=== PATIENT | male | born 1955 | race Caucasian/White ===

== ENCOUNTER 2021-10-24 08:12 | Emergency (ER) | payer MEDICARE, OTHER, SELFPAY ==
[2021-10-24 08:23] VITALS: BP 154/81; PULSE 80; RESP 16; TEMP 36.7; O2SAT 100; BMI 19.6
--- NOTE | 2021-10-24 08:36 | DI.CT.S_ITS ---
PROCEDURE: CT ABDOMEN PELVIS W CON INDICATIONS: Diffuse abdominal pain and unexplained weight loss and blood TECHNIQUE: After the administration of intravenous contrast, axial sections acquired from the lung bases to the pubic symphysis. Coronal and sagittal reformats were performed. For radiation dose reduction, the following was used: automated exposure control, adjustment of mA and/or kV according to patient size. COMPARISON: [facility], , ABDOMEN COMPLETE, 10/24/2021, 10:40. FINDINGS: Image quality: Excellent. Lung bases: Unremarkable. Heart: No significant findings. ABDOMEN: Liver: Unremarkable. Gallbladder: Unremarkable. Biliary ducts: Unremarkable. Pancreas: Unremarkable. Spleen: Unremarkable. Adrenal Glands: Unremarkable. Kidneys and Ureters: Unremarkable. Stomach and Bowel: There is bowel wall thickening and inflammatory fat stranding surrounding a prominent diverticulum in the sigmoid colon. No signs of small bowel obstruction. Peritoneum: No pneumoperitoneum. No focal fluid collection or abscess. Trace pericolonic and perirectal fluid is most likely reactive. Ventral Wall: No hernias. Abdominal Nodes: No retroperitoneal or mesenteric adenopathy by size criteria. Vessels: Aorta and inferior vena cava are normal in size. PELVIS: Pelvic Organs: Unremarkable. Bladder: Unremarkable. Pelvic Nodes: No enlarged lymph nodes. Miscellaneous: No hernias are seen. Bones: There is bilateral spondylolysis of L5 with grade 1 anterolisthesis of L5 on S1 measuring approximately 6 mm. There is also bilateral spondylolysis of L4 with 4 mm grade 1 anterolisthesis of L4 on L5. IMPRESSION: Acute uncomplicated sigmoid diverticulitis. Dictated by: Sandor Collins M.D. on 10/24/2021 at 10:42 Approved by: Sandor Collins M.D. on 10/24/2021 at 10:46
[2021-10-24 08:45] LABS: Add Manual Diff / Slide Review NO; Basophils Absolute Auto 0 /uL (0-100); Basophils Percent Auto 0.3 % (0-2); Eosinophils Absolute Auto 0 /uL (0-450); Eosinophils Percent Auto 0.3 % (2-4); Hematocrit 45.9 % (41-53); Hemoglobin 15.5 g/dL (13.5-17.5); Lymphocytes Absolute Auto 1200 /uL (1100-4500); Lymphocytes Percent Auto 10.5 % (25-40); Mean Corpuscular HGB Conc 33.7 % (30-36); Mean Corpuscular Hemoglobin 30.4 PG (26-34); Mean Corpuscular Volume 90.2 fL (80-100); Monocytes Absolute Auto 1300 /uL (0-900); Monocytes Percent Auto 10.9 % (3-14); Neutrophils Absolute Auto 9200 /uL (1500-7000); Platelet Count 101 X10^3/uL (150-400); Red Blood Cell Count 5.08 X10^6/uL (4.5-5.9); Red Cell Distribution Width 13.3 % (11.6-14.8); White Blood Cell Count 11.8 X10^3/uL (4.5-11.0)
--- NOTE | 2021-10-24 08:46 | ED_ITS ---
HPI - Abdominal Pain General Chief Complaint: Abdominal Pain Stated Complaint: ABD. PAIN/FEVER Time Seen by Provider: 10/24/21 08:15 Source: patient Mode of arrival: Ambulatory History of Present Illness HPI narrative: This 66-year-old gentleman comes to the ER today from his home on [address] [facility] because of a 24 hour episode of moderate mid abdominal pain. Had 8 or 9 of these episodes over the past few years and they have always been self- limited within a couple of days. He has told his primary care doctor about them but has never been in the midst of an episode when he was seeing his primary care doctor. Additionally, he has had an unexplained weight loss of about 20 lb over the past couple of years. This current episode is associated with fever last night. Perhaps some positional change with the pain. No radiation to the back. No dysuria or urgency or frequency. He says that he feels somewhat constipated now but over the past 24 hours has had some loose stools that were nonbloody. Has felt vaguely nauseated but has not had any vomiting. He is had no previous abdominal surgeries. Does drink some alcohol a couple of days a week. He denies any other drug use and is a lifelong nonsmoker. He is never had a screening colonoscopy. Related Data Home Medications Medication Instructions Recorded Confirmed VITAMIN B COMPLEX 1 cap PO 2 X WEEK ##0 10/03/12 cholecalciferol (vitamin D3) 10 1 - 2 drp PO Q DAY ##0 03/10/16 mcg/mL (400 unit/mL) oral drops aspirin 325 mg tablet 162 mg PO QDAY ##0 03/15/16 Previous Rx's Medication Instructions Recorded ciprofloxacin HCl 500 mg tablet 500 mg PO BID #20 tabs 10/24/21 (Cipro) metronidazole 500 mg tablet 250 mg PO TID #30 tabs 10/24/21 Allergies Allergy/AdvReac Type Severity Reaction Status Date / Time hornet venom [HORNET VENOM] Allergy Severe ARM Verified 10/24/21 08:23 SWELLING-EPI ORDERED Review of Systems Review of Systems Narrative: Complete review of systems is negative other than as noted above. Patient History Surgical History (Updated 06/19/17 @ 05:36 by Conversion Provider) History of carpal tunnel repair History of tonsillectomy Family History (Updated 07/28/15 @ 00:00 by Conversion Provider) Brother Age: 71 Parkinson's disease Father Heart disease Mother Age: 95 Dementia Neuropathy Social History Smoking Status: Never smoker Smoking Status: Never smoker alcohol intake frequency: a few times a week Substance Use Type: does not use Exam Narrative Exam Narrative: GENERAL: Alert, cooperative and in no distress. HEAD: Atraumatic. Normocephalic. EYES: Sclera are clear without icterus. Extraocular movements are full. ENT: No rhinorrhea. Oropharynx is moist. Mouth exam is benign. NECK: Supple. Full range of motion. CARDIOVASCULAR: Normal rate and rhythm without murmur gallop or rub. RESPIRATORY: Clear to auscultation. Breath sounds equal bilaterally. No wheezes, rales, or rhonchi. GASTROINTESTINAL: Abdomen soft, non-tender, nondistended. No palpable mass. RECTAL: Normal anal sphincter tone. Normal-sized prostate without nodules. No rectal mass palpable. Scant brown stool recovered on the exam glove. The stool is guaiac positive. EXTREMITIES: No edema, full range of motion. No obvious trauma. BACK: Normal inspection, no CVA tenderness. NEURO: Nonfocal examination, normal speech, normal gait. SKIN: No rash or erythema of visible areas PSYCH: Normally oriented. Normal range of affect. Appropriate behavior Initial Vital Signs Initial Vital Signs: Vital Signs Temperature 98.1 F 10/24/21 08:23 Pulse Rate 80 10/24/21 08:23 Respiratory Rate 16 10/24/21 08:23 Blood Pressure 154/81 H 10/24/21 08:23 Pulse Oximetry 100 10/24/21 08:23 Oxygen Delivery Method 10/24/21 08:23 Course Course Course Narrative: Bilirubin is mildly elevated. CT scanner. Will proceed with abdominal ultrasonography. Orders Ordered: ED Orders 10/24/21 08:35 Complete Blood Count AUTO DIFF Stat Comprehensive Metabolic Panel Stat Lipase Stat Urinalysis and Microscopic Stat 10/24/21 08:36 CT abdomen pelvis w con Stat 10/24/21 10:05 US abdomen complete Stat Discontinued Medications Ciprofloxacin (Ciprofloxacin 250 Mg Tablet) 500 mg PO NOW ONE Stop: 10/24/21 12:03 Metronidazole (Metronidazole 500 Mg Tablet) 500 mg PO NOW ONE Stop: 10/24/21 12:03 Vital Signs Vital signs: Vital Signs - 8 hr 10/24/21 08:23 10/24/21 11:25 Temperature 98.1 F Pulse Rate 80 76 Respiratory Rate 16 18 Blood Pressure 154/81 H 149/69 H Pulse Oximetry 100 100 Oxygen Delivery Method Room Air Room Air MDM - Abdominal Pain Lab Data Result diagrams: 10/24/21 08:35 10/24/21 08:35 Labs: Lab Results 10/24/21 10/24/21 10/24/21 Range/Units 08:35 08:35 08:35 WBC 11.8 H (4.5-11.0) X10^3/uL RBC 5.08 (4.5-5.9) X10^6/uL Hgb 15.5 (13.5-17.5) g/dL Hct 45.9 (41-53) % MCV 90.2 (80-100) fL MCH 30.4 (26-34) PG MCHC 33.7 (30-36) % RDW 13.3 (11.6-14.8) % Plt Count 101 L (150-400) X10^3/uL Neut % (Auto) 78.0 H (50-75) % Lymph % (Auto) 10.5 L (25-40) % Castro % (Auto) 10.9 (3-14) % Eos % (Auto) 0.3 L (2-4) % Baso % (Auto) 0.3 (0-2) % Neut # (Auto) 9200 H (2917-7832) /uL Lymph # (Auto) 1200 (9141-1891) /uL Castro # (Auto) 1300 H (0-900) /uL Eos # (Auto) 0 (0-450) /uL Baso # (Auto) 0 (0-100) /uL Sodium 135 L (137-145) mmol/L Potassium 4.0 (3.4-5.1) mmol/L Chloride 102 (98-107) mmol/L Carbon Dioxide 28 (22-32) mmol/L BUN 13 (9-20) mg/dL Creatinine 0.93 (0.66-1.25) mg/dL Estimated GFR > 60 (>60) mL/min BUN/Creatinine Ratio 14.0 (6-22) Glucose 104 (80-110) mg/dL Calcium 8.6 (8.4-10.2) mg/dL Total Bilirubin 2.2 H (0.2-1.3) mg/dL AST 31 (17-59) IU/L ALT 19 (<50) IU/L Alkaline Phosphatase 72 (38-126) U/L Total Protein 7.3 (6.3-8.2) g/dL Albumin 4.2 (3.5-5.0) g/dL Globulin 3.1 (1.7-4.1) g/dL Albumin/Globulin Ratio 1.4 (1.0-2.8) Lipase 81 (23-300) U/L Urine Color Yellow Urine Appearance Clear Urine pH 5.0 (4.5-8.0) Ur Specific [place] 1.025 (1.000-1.035) Urine Protein Trace H (Negative) Urine Glucose (UA) Trace H (Negative) g/dL Urine Ketones 1+ H (NEGATIVE) Urine Occult Blood Trace-intact (Negative) Urine Nitrate Negative (Negative) Urine Bilirubin Negative (NEGATIVE) Urine Urobilinogen 0.2 (0.2) E.U./dL Ur Leukocyte Esterase Trace H (NEGATIVE) Urine RBC None seen (0-5/HPF) Urine WBC 0-1/hpf (0-5/HPF) Ur Squamous Epith Cells None seen (0-5/HPF) Urine Bacteria None seen (None) Urine Mucus 2+ H (Negative) Ur Culture Indicated? Cult not indicated Imaging Data US - abdomen: Radiologist's Impression: [place] [address] Ultrasound Report Signed Patient: Efren Liriano MR#: [id number] : 1955 Acct:[id number] Age/Sex: 66 / M Date of Service: 10/24/21 Loc: ED Accession Number: [id number] ?? Procedure: US abdomen complete Ordering Provider: Austin No MD PROCEDURE:? US ABDOMEN COMPLETE ? INDICATIONS:? Diffuse abdominal pain, elevated bilirubin ? TECHNIQUE:? Real-time scanning was performed of the abdominal and retroperitoneal organs, with image documentation.? ? COMPARISON:? [facility], US, ABDOMEN COMPLETE, 10/04/2010, 14:49.? [facility], CT, CT ABDOMEN PELVIS W CON, 10/24/2021, 11:11. ? FINDINGS:? ? Liver:? Liver is normal in size and homogeneous in echotexture.? The main portal vein and hepatic veins are patent. ? Gallbladder:? The gallbladder appears normal without gallstones or gallbladder wall thickening.? There is trace debris or sludge in the gallbladder.? There is no pericholecystic fluid.? Sonographic Gamino sign is negative. ? Biliary ducts:? Intrahepatic bile ducts are non-dilated.? Extrahepatic bile duct caliber measures 6 mm.? Normal is 6-7 mm or less in diameter, or 10 mm or less post-cholecystectomy.? ? Pancreas:? Visualized portions of the pancreas are sonographically normal.? ? Spleen:? Spleen is normal in size and homogeneous in echotexture.? ? Kidneys:? Kidneys are normal in size and echotexture.? Right kidney measures 10.2 cm long; left kidney measures 12 cm long.? No hydronephrosis or nephrolithiasis.? No solid masses.? Left kidney is not well evaluated due to overlying bowel gas and rib shadows. ? Aorta:? Visualized aorta is normal in caliber at less than 3 cm.? ? Iliacs:? Proximal common iliac arteries are normal in caliber at less than 2.5 cm.? ? IVC:? Intrahepatic inferior vena cava is patent.? ? Miscellaneous:? No free abdominal fluid.? ? IMPRESSION:? No acute sonographic abnormality in the abdomen. ? ? ? Dictated by: Sandor Collins M.D. on 10/24/2021 at 10:26 ? ? Approved by: Sandor Collins M.D. on 10/24/2021 at 10:34 ? CT scan - abdomen/pelvis: Radiologist's Impression: [address] [address] [address] Scan Report Signed Patient: Efren Liriano MR#: [id number] : 1955 Acct:[id number] Age/Sex: 66 / M Date of Service: 10/24/21 Loc: ED Accession Number: [id number] ?? Procedure: CT abdomen pelvis w con Ordering Provider: Austin No MD PROCEDURE:? CT ABDOMEN PELVIS W CON ? INDICATIONS:? Diffuse abdominal pain and unexplained weight loss and blood ? TECHNIQUE:? After the administration of intravenous contrast, axial sections acquired from the lung bases to the pubic symphysis.? Coronal and sagittal reformats were performed.? For radiation dose reduction, the following was used:? automated exposure control, adjustment of mA and/or kV according to patient size.? ? COMPARISON:? [facility], , ABDOMEN COMPLETE, 10/24/2021, 10:40. ? FINDINGS:? Image quality:? Excellent.? ? Lung bases:? Unremarkable. Heart:? No significant findings. ? ABDOMEN: Liver:? Unremarkable.? ? Gallbladder:? Unremarkable. Biliary ducts:? Unremarkable.? ? Pancreas:? Unremarkable.? ? Spleen:? Unremarkable.? ? Adrenal Glands:? Unremarkable.? ? Kidneys and Ureters:? Unremarkable.? ? ? Stomach and Bowel:? There is bowel wall thickening and inflammatory fat stranding surrounding a prominent diverticulum in the sigmoid colon.? No signs of small bowel obstruction. Peritoneum:? No pneumoperitoneum.? No focal fluid collection or abscess.? Trace pericolonic and perirectal fluid is most likely reactive. ? Ventral Wall: ? No hernias.? Abdominal Nodes:? No retroperitoneal or mesenteric adenopathy by size criteria.? Vessels:? Aorta and inferior vena cava are normal in size.? ? PELVIS: Pelvic Organs:? Unremarkable.? ? Bladder:? Unremarkable.? ? Pelvic Nodes: No enlarged lymph nodes.? Miscellaneous: No hernias are seen. ? ? ? Bones:? There is bilateral spondylolysis of L5 with grade 1 anterolisthesis of L5 on S1 measuring approximately 6 mm.? There is also bilateral spondylolysis of L4 with 4 mm grade 1 anterolisthesis of L4 on L5.? ? IMPRESSION:? Acute uncomplicated sigmoid diverticulitis. ? ? ? Dictated by: Sandor Collins M.D. on 10/24/2021 at 10:42 ? ? Approved by: Sandor Collins M.D. on 10/24/2021 at 10:46 ? [facility] Narrative Medical decision making narrative: This gentleman has multiple episodes of her years of unexplained midabdominal pain. Remarkably also unexplained weight loss over the past couple of years. No screening colonoscopy. Guaiac-positive stool today. Detailed workup seems indicated. Diverticulitis is identified. Will treat empirically for this. I recommend saeid se outpatient follow-up for guaiac-positive stool and abnormal weight loss. Discharge Plan Departure Patient Disposition: Home Clinical Impression: Diverticulitis Instructions: DI for Diverticulitis Activity Restrictions/Additional Instructions: You have diverticulitis. You also have occult blood in your stool. This may be from the diverticulitis but it is not possible to say for sure that there is not a hidden cancer in the colon. This would require colonoscopy. Regarding her abnormal weight loss. I do not think any further workup is required in the emergency department right now but I do recommend you follow-up with your primary care doctor and discuss this and any potential further workup that might be indicated. Return to the ER for worsening symptoms such as uncontrolled abdominal pain, uncontrolled vomiting or other severe symptoms. Follow-up with your doctor in a few days if things are not improving. Prescriptions: New ciprofloxacin HCl [Cipro] 500 mg tablet 500 mg PO BID Qty: 20 0RF metronidazole 500 mg tablet 250 mg PO TID Qty: 30 0RF No Action VITAMIN B COMPLEX 1 cap PO 2 X WEEK Qty: 0 cholecalciferol (vitamin D3) 400 UNIT/1 ML drops 1 - 2 drp PO Q DAY Qty: 0 aspirin 325 MG tablet 162 mg PO QDAY Qty: 0
[2021-10-24 08:54] LABS: Alanine Aminotransferase 19 IU/L (<50); Albumin 4.2 g/dL (3.5-5.0); Albumin Globulin Ratio 1.4 (1.0-2.8); Alkaline Phosphatase 72 U/L (38-126); Appearance Urine UA CLEAR; Aspartate Aminotransferase 31 IU/L (17-59); Bilirubin Total 2.2 mg/dL (0.2-1.3); Bilirubin Urine UA NEGATIVE (NEGATIVE); Blood Urea Nitrogen 13 mg/dL (9-20); Calcium 8.6 mg/dL (8.4-10.2); Carbon Dioxide 28 mmol/L (22-32); Chloride 102 mmol/L (98-107); Color Urine UA YELLOW; Estimated Glomerular Filt Rate > 60 mL/min (>60); Globulin 3.1 g/dL (1.7-4.1); Glucose 104 mg/dL (80-110); Glucose Urine UA TRACE g/dL (Negative); HEMOLYSIS < 15 (0-50); Ketones Urine UA 1+ (NEGATIVE); Leukocyte Esterase Urine UA TRACE (NEGATIVE); Lipase 81 U/L (23-300); Nitrite Urine UA NEGATIVE (Negative); Occult Blood Urine UA TRACE-INTACT (Negative); Protein Urine UA TRACE (Negative); Sodium 135 mmol/L (137-145); Specific Gravity Urine UA 1.025 (1.000-1.035); Total Protein 7.3 g/dL (6.3-8.2); Urobilinogen Urine UA 0.2 E.U./dL (0.2)
[2021-10-24 09:01] LABS: Bacteria Urine None Seen; Culture Indicated Urine Cult Not Indicated; Mucus Urine 2+ (Negative); RBC Urine None Seen (0-5/HPF); Squamous Epithelial Cell Urine None Seen (0-5/HPF); WBC Urine 0-1/HPF (0-5/HPF)
--- NOTE | 2021-10-24 10:05 | DI.US.S_ITS ---
PROCEDURE: US ABDOMEN COMPLETE INDICATIONS: Diffuse abdominal pain, elevated bilirubin TECHNIQUE: Real-time scanning was performed of the abdominal and retroperitoneal organs, with image documentation. COMPARISON: [facility], US, ABDOMEN COMPLETE, 10/04/2010, 14:49. [facility], CT, CT ABDOMEN PELVIS W CON, 10/24/2021, 11:11. FINDINGS: Liver: Liver is normal in size and homogeneous in echotexture. The main portal vein and hepatic veins are patent. Gallbladder: The gallbladder appears normal without gallstones or gallbladder wall thickening. There is trace debris or sludge in the gallbladder. There is no pericholecystic fluid. Sonographic Gamino sign is negative. Biliary ducts: Intrahepatic bile ducts are non-dilated. Extrahepatic bile duct caliber measures 6 mm. Normal is 6-7 mm or less in diameter, or 10 mm or less post-cholecystectomy. Pancreas: Visualized portions of the pancreas are sonographically normal. Spleen: Spleen is normal in size and homogeneous in echotexture. Kidneys: Kidneys are normal in size and echotexture. Right kidney measures 10.2 cm long; left kidney measures 12 cm long. No hydronephrosis or nephrolithiasis. No solid masses. Left kidney is not well evaluated due to overlying bowel gas and rib shadows. Aorta: Visualized aorta is normal in caliber at less than 3 cm. Iliacs: Proximal common iliac arteries are normal in caliber at less than 2.5 cm. IVC: Intrahepatic inferior vena cava is patent. Miscellaneous: No free abdominal fluid. IMPRESSION: No acute sonographic abnormality in the abdomen. Dictated by: Sandor Collins M.D. on 10/24/2021 at 10:26 Approved by: Sandor Collins M.D. on 10/24/2021 at 10:34
[2021-10-24 11:25] VITALS: BP 149/69; PULSE 76; RESP 18; O2SAT 100
[2021-10-24] MEDS: CIPROFLOXACIN 250 MG TABLET 500 MG PO (12:11)
[2021-10-24] MEDS: metroNIDAZOLE 500 MG TABLET PO (12:11)
== END 2021-10-24 12:18 | disposition home or self-care (01) ==
PROVIDERS: Emergency Provider Family Medicine Addiction Medicine
DX: K57.92 Diverticulitis of intestine, part unspecified, without perforation or abscess without bleeding (principal); R63.4 Abnormal weight loss; R50.9 Fever, unspecified
CPT/HCPCS: 36415; 74177; 76700; 80053; 81001; 83690; 85025; 99283; 99284; Q9967

== ENCOUNTER → 2022-06-27 07:34 | Outpatient (CLI) | payer MEDICARE, OTHER, SELFPAY ==
--- NOTE | 2022-06-27 | DI.US.S_ITS ---
PROCEDURE: US ABD AORTA ANEURYSM SCREEN INDICATIONS: ASCENDING AORTIC DILATION TECHNIQUE: Real time scanning was performed of the aorta and iliac arteries, with image documentation. COMPARISON: CT, CT ABDOMEN PELVIS W CON, 10/24/2021, 11:11. US, US ABDOMEN COMPLETE, 10/24/2021, 10:40. FINDINGS: Aorta: Proximal aortic diameter measures 2.2 cm. Mid-aorta measures 1.6 cm. Distal aortic diameter is 1 point soft cm. Iliac arteries: Right common iliac artery measures 1.2 cm. Left common iliac artery measures 1.4 cm. IMPRESSION: No aneurysmal dilation. Dictated by: Janessa Pedraza M.D. on 06/27/2022 at 10:48 Approved by: Janessa Pedraza M.D. on 06/27/2022 at 11:54
== END ==
PROVIDERS: PCP Family Medicine; Referring Provider Nurse Practitioner Family; Visit Provider Nurse Practitioner Family
DX: R07.89 Other chest pain (principal)
CPT/HCPCS: 76706

== ENCOUNTER → 2022-06-29 07:51 | Outpatient (CLI) | payer MEDICARE, OTHER, SELFPAY ==
--- NOTE | 2022-06-29 | DI.ECHO.S_ITS ---
[facility] +---------+ : : [address] [place] : : : : [id number] : : : : Phone: [phone]+ Echocardiogram Report + + :Name: DENICE LIRA Study Date: 06/29/2022 Height: 71 in : :[facility] ReadingLocation: Weight: 142 lb : : Gender: Male BSA: 1.8 m2 : :: 1955 Age: 67 yrs BP: 120/68 mmHg: :Reason For Study: DYSPNEA, FAMILY HISTORY CORONARY ARTERY : :DISEASE HR: 65 : :Ordering Physician: JUJU GAO : :E Performed By: ELISHA MCCOLLUM : :Referring: JUJU GAO E : + + Interpretation Summary 1) Normal left ventricular thickness, size, wall motion, and systolic function (EF 55-60%). 2) Mildly enlarged right ventricle with normal function. 3) No significant valvular abnormalities. 4) No prior Echo available for comparison. Procedure: A two-dimensional transthoracic echocardiogram with color flow and Doppler was performed. The study quality was technically adequate. There is no prior echocardiogram noted for this patient. The patient was in normal sinus rhythm during the exam. Left Ventricle: The left ventricle is normal in size and wall thickness. Left ventricular systolic function is normal. The ejection fraction is estimated to be 55-60%. There are no focal wall motion abnormalities. Diastolic parameters suggest a relaxation abnormality of the left ventricle, consistent with probable normal filling pressures. Right Ventricle: The right ventricle is mildly dilated. The right ventricular systolic function is normal. Atria: The left atrial size is normal. The right atrium is moderately dilated. There is no Doppler evidence for an interatrial shunt. Mitral Valve: The mitral valve is normal in structure and function. There is mild mitral regurgitation. Aortic Valve: The aortic valve is trileaflet. The aortic valve opens well. There is no aortic valve stenosis. There is trace aortic regurgitation. Tricuspid Valve: The tricuspid valve is normal in structure and function. There is mild tricuspid regurgitation. The right ventricular systolic pressure is estimated to be at least 23 mmHg based on an estimated right atrial pressure of 3 mm Hg. Pulmonic Valve: The pulmonic valve leaflets are thin and pliable; valve motion is normal. There is no pulmonic valvular regurgitation. Great Vessels: The aortic root is normal size. The ascending aorta is normal in size. The IVC is of normal diameter and collapses greater than 50% with a sniff. This suggests a low right atrial pressure of 3 mm Hg. Pericardium/ Pleura There is no pericardial effusion. There is no pleural effusion. MMode/2D Measurements & Calculations LVIDd: 4.0 cm LVOT diam: 2.0 cm LVIDs: 3.0 cm Ao root diam: 3.1 cm FS: 24.4 % asc Aorta Diam: 2.9 cm IVSd: 0.93 cm Ao Arch Diam (Prox Trans): 2.0 cm LVPWd: 0.79 cm LV montgomery. diameter/BSA (cm/m^2): 2.2 LV sys. diameter/BSA (cm/m^2): 1.6 LA A2 area: 17.5 cm2 RA long axis: 5.0 cm LA A4 area: 8.3 cm2 RA area: 20.4 cm2 LA length (vol): 3.6 cm RA vol: 70.3 ml LA vol: 34.4 ml RA : 38.6 ml/m2 LA vol index: 18.8 ml/m2 IVC diam: 1.4 cm TAPSE: 1.8 cm Doppler Measurements & Calculations Ao V2 max: 108.8 cm/sec LVOT Max Polo: 78.8 cm/sec Ao V2 mean: 70.7 cm/sec LV V1 max P.5 mmHg Ao max P.7 mmHg LV V1 VTI: 16.3 cm Ao mean P.2 mmHg MONIKA(I,D): 2.6 cm2 Ao V2 VTI: 19.9 cm MONIKA(V,D): 2.3 cm2 sev ratio: 0.82 MONIKA indexed to BSA (cm^2/m^2): 1.4 MV E max polo: 59.9 cm/sec TR max polo: 217.1 cm/sec MV A max polo: 58.1 cm/sec TR max P.9 mmHg MV E/A: 1.0 PA V2 max: 127.9 cm/sec Med Peak E' Polo: 6.8 cm/sec PA V2 mean: 88.2 cm/sec E/E' med: 8.8 PA mean P.4 mmHg Lat Peak E' Polo: 7.4 cm/sec PA pr(Accel): 12.2 mmHg E/E' lat: 8.1 E/e' average: 8.4 MV dec time: 0.19 sec SVLVOT): 50.9 ml Reading Physician:05:44 PM
== END ==
PROVIDERS: PCP Family Medicine; Referring Provider Family Medicine; Visit Provider Family Medicine
DX: I08.1 Rheumatic disorders of both mitral and tricuspid valves (principal); R06.09 Other forms of dyspnea; Z82.49 Family history of ischemic heart disease and other diseases of the circulatory system
CPT/HCPCS: 93306

== ENCOUNTER 2023-10-23 07:30 | Emergency (ER) | payer MEDICARE, OTHER, SELFPAY ==
[2023-10-23] VITALS (10 sets, daily range): BP systolic 125–192; BP diastolic 72–106; PULSE 52–65; RESP 11–24; TEMP 36.9; O2SAT 96–99; BMI 19.5
--- NOTE | 2023-10-23 07:38 | ED_ITS ---
HPI - General Adult General Chief complaint: Chest Pain Stated complaint: chronic chest pain Time Seen by Provider: 10/23/23 07:36 Source: patient, RN notes reviewed and old records reviewed Mode of arrival: Ambulatory Limitations: no limitations History of Present Illness HPI narrative: 68-year-old male with history chest pain, premature family history of coronary artery disease, hypertension who presents with complaint of left-sided chest pain. Patient states he has had this on and off for years. Had always sort of assumed it was gastrointestinal but states it is become frequent with more persistent over the past 1-2 weeks. Patient states seems to be little bit worse with a big meals or eating. He will sometimes take a Pepcid in anticipation if he is eating something spicy. He normally just takes Rolaids but have not been as helpful. Patient states exertion or exercise does not make any change. Does not seem to be associated with anything in particular accept sometimes certain meals. He is episodes on and off for the past week Sunday woke up at about 3:00 a.m. in the morning did resolve. He states he has a little bit of dull pain currently on the left side of his chest, no radiation, diaphoresis, no shortness of breath, no nausea or vomiting no rashes no lightheadedness or passing out no swelling in extremities. Patient states he was prompted to come because of the change of pattern. He states no daily prescription medications. He is to take Pepcid daily but stopped it because he thought it caused insomnia. Used to take losartan daily but stopped that on the recommendation of his physician. Patient has had prior carpal tunnel surgery in the past. No known drug allergies. No tobacco, alcohol 3 or 4 times monthly, no recreational drugs. Father did of a myocardial infarction age 59, brother at age 72 in his sleep but did have a history of triple-vessel CABG 7 years prior. Patient has seen Gastroenterology and had upper endoscopy a year ago which was negative, he is also seen Dr. Elmore with Cardiology in the past year had a stress test that was negative in 2017 but had a hypertensive response she was what started him on losartan initially. Patient states he is normally 120-130 systolic and 70 over to 80 diastolic. He has not had a heart catheterization but has had calcium channel scoring in the past year. Patient lives on [address]. Primary care [facility]. Cardiology is Dr. Simeon with [email or web address]. No long distance travel. Related Data Home Medications Medication Instructions Recorded Confirmed VITAMIN B COMPLEX 1 cap PO 2 X WEEK ##0 10/03/12 cholecalciferol (vitamin D3) 10 1 - 2 drp PO Q DAY ##0 03/10/16 mcg/mL (400 unit/mL) oral drops aspirin 325 mg tablet 162 mg PO QDAY ##0 03/15/16 Previous Rx's Medication Instructions Recorded ciprofloxacin HCl 500 mg tablet 500 mg PO BID #20 tabs 10/24/21 (Cipro) metronidazole 500 mg tablet 250 mg (1/2 x 500 mg) PO TID #30 10/24/21 tabs Allergies Allergy/AdvReac Type Severity Reaction Status Date / Time hornet venom [HORNET VENOM] Allergy Severe ARM Verified 10/24/21 08:23 SWELLING-EPI ORDERED Review of Systems Review of Systems ROS Unobtainable: All systems reviewed & are unremarkable except as noted in HPI and below Patient History Surgical History History of tonsillectomy History of carpal tunnel repair Family History Brother Age: 73 Parkinson's disease Father Heart disease Mother Age: 97 Dementia Neuropathy Social History Smoking Status: Never smoker Smoking Status: Never smoker alcohol intake frequency: a few times a week Substance Use Type: does not use Exam Narrative Exam Narrative: GENERAL: Alert and oriented x three, thin, well-appearing male in no acute distress. HEENT: Head normocephalic, atraumatic, EOMI, pupils reactive, face symmetric, moist mucous membranes NECK: Supple, full range of motion CARDIOVASCULAR: Regular rate and rhythm without murmurs, rubs or gallops. No JVD. No edema. RESPIRATORY: Breath sounds equal bilaterally, no wheezes rales or rhonchi. ABDOMEN: Soft, nontender. Normoactive bowel sounds all 4 quadrants. No guarding or rebound, rigidity, no mass : No CVA tenderness EXTREMITIES: Normal range of motion, no clubbing or edema. Neurovascularly intact NEUROLOGICAL: Cranial nerves II through XII grossly intact. Moving all extremities SKIN: Warm, dry, no petechiae, no rashes or lesions. Initial Vital Signs Initial Vital Signs: Vital Signs Temperature 98.4 F 10/23/23 07:36 Pulse Rate 55 L 10/23/23 07:36 Respiratory Rate 16 10/23/23 07:36 Blood Pressure 192/106 H 10/23/23 07:36 Pulse Oximetry 99 10/23/23 07:36 Oxygen Delivery Method Room Air 10/23/23 07:36 Course Orders Ordered: ED Orders 10/23/23 07:45 Complete Blood Count AUTO DIFF Stat Comprehensive Metabolic Panel Stat Lipase Stat NT-proBNP (BNP-Adult 18+) Stat Troponin & CK Cardiac Panel Stat 10/23/23 07:52 XR chest 1V Stat EKG-12 Lead Stat 10/23/23 09:44 EKG-12 Lead Stat 10/23/23 09:45 Trop I [Troponin I] Stat Vital Signs Vital signs: Vital Signs - 8 hr 10/23/23 07:36 10/23/23 07:43 10/23/23 08:00 Temperature 98.4 F Pulse Rate 55 L 65 52 L Respiratory Rate 16 21 Blood Pressure 192/106 H 149/72 H Pulse Oximetry 99 98 97 Oxygen Delivery Method Room Air 10/23/23 08:30 10/23/23 08:30 10/23/23 08:45 Temperature Pulse Rate 54 L 53 L Respiratory Rate Blood Pressure 150/78 H Pulse Oximetry 96 97 Oxygen Delivery Method 10/23/23 08:45 10/23/23 09:00 10/23/23 09:00 Temperature Pulse Rate 55 L Respiratory Rate Blood Pressure 136/82 125/72 Pulse Oximetry 97 Oxygen Delivery Method 10/23/23 09:30 10/23/23 09:30 10/23/23 10:00 Temperature Pulse Rate 52 L 54 L Respiratory Rate 11 L 24 Blood Pressure 135/76 Pulse Oximetry 97 98 Oxygen Delivery Method 10/23/23 10:02 10/23/23 10:02 10/23/23 10:30 Temperature Pulse Rate 54 L 53 L Respiratory Rate 21 Blood Pressure 151/76 H Pulse Oximetry 97 97 Oxygen Delivery Method 10/23/23 10:30 Temperature Pulse Rate Respiratory Rate Blood Pressure 133/73 Pulse Oximetry Oxygen Delivery Method Medical Decision Making Lab Data 10/23/23 07:45 10/23/23 07:45 Labs: Lab Results 10/23/23 10/23/23 Range/Units 07:45 09:45 WBC 4.7 (4.5-11.0) X10^3/uL RBC 4.96 (4.5-5.9) X10^6/uL Hgb 15.2 (13.5-17.5) g/dL Hct 43.8 (41-53) % MCV 88.3 (80-100) fL MCH 30.7 (26-34) PG MCHC 34.8 (30-36) % RDW 13.6 (11.6-14.8) % Plt Count 111 L (150-400) X10^3/uL Neut % (Auto) 65.1 (50-75) % Lymph % (Auto) 23.7 L (25-40) % [place] % (Auto) 9.9 (3-14) % Eos % (Auto) 0.8 L (2-4) % Baso % (Auto) 0.5 (0-2) % Neut # (Auto) 3100 (6333-4318) /uL Lymph # (Auto) 1100 (8920-2999) /uL [place] # (Auto) 500 (0-900) /uL Eos # (Auto) 0 (0-450) /uL Baso # (Auto) 0 (0-100) /uL Sodium 137 (137-145) mmol/L Potassium 3.8 (3.4-5.1) mmol/L Chloride 105 (98-107) mmol/L Carbon Dioxide 25 (22-32) mmol/L BUN 16 (9-20) mg/dL Creatinine 0.73 (0.66-1.25) mg/dL Estimated GFR > 60 (>60) mL/min BUN/Creatinine Ratio 21.9 (6-22) Glucose 103 (80-110) mg/dL Calcium 9.2 (8.4-10.2) mg/dL Total Bilirubin 1.0 (0.2-1.3) mg/dL AST 42 (17-59) IU/L ALT 25 (<50) IU/L Alkaline Phosphatase 90 (38-126) U/L Total Creatine Kinase 122 (55-170) U/L Troponin I < 0.012 < 0.012 (0.01-0.034) ng/mL NT-Pro-B Natriuret Pep 84 (<125) pg/mL Total Protein 7.0 (6.3-8.2) g/dL Albumin 4.2 (3.5-5.0) g/dL Globulin 2.8 (1.7-4.1) g/dL Albumin/Globulin Ratio 1.5 (1.0-2.8) Lipase 112 (23-300) U/L Imaging Data Chest x-ray: Radiologist's Impression: Close Chest X-Ray (Signed) Cordell Mendenhall - 10/23/23 Launch?Image [address] [address] XRay Report Signed Patient: Efren Liriano MR#: [id number] : 1955 Acct:[id number] Age/Sex: 68 / M Date of Service: 10/23/23 Loc: ED Accession Number: [id number] Procedure: XR chest 1V Ordering Provider: Alexandrea Gomez D.O. PROCEDURE: XR CHEST 1V INDICATIONS: chest pain TECHNIQUE: One view of the chest was acquired. COMPARISON: [facility], CHEST 1 VIEW, 02/17/2016, 15:15. FINDINGS: Surgical changes and devices: None. Lungs and pleura: Lungs are clear. No pleural effusions or pneumothorax. Mediastinum: Mediastinal contours appear normal. Heart size is normal. Bones and chest wall: No suspicious bony lesions. Overlying soft tissues appear unremarkable. IMPRESSION: No acute cardiopulmonary abnormality is seen. Dictated by: Cordell Mendenhall M.D. on 10/23/2023 at 8:20 Approved by: Cordell Mendenhall M.D. on 10/23/2023 at 8:21 ECG Data Attestation: I personally reviewed and interpreted this ECG as follows: Prior ECG tracings: available for review Interpretation: Sinus bradycardia with a first-degree AV block rate of 58, [place] 210, QRS 88 QTC of 400 patient has prior from 02/17/2016 which appears similar accept for normal sinus rhythm. Patient also has cardiology visit with EKG from 08/03/2022 which appears similar. EKG 2. Rate of 54 [place] 234 QRS of 90 QTC of 400 sinus bradycardia with first- degree AV block. Patient has no dynamic EKGs changes appreciated. No ST depression or reciprocal changes noted. MDM Narrative Medical decision making narrative: 68-year-old male with the acute on chronic recurrent chest pain has not changed characteristics other than frequency and more prolonged. Patient has had stress testing and calcium scoring in the past. Had a hypertensive response stress testing and was started on losartan but is not persistently hypertensive with primary care so was stopped. He was taking Pepcid regularly but no longer does. Patient does have family history coronary artery disease. Labs white count of 4.7 hemoglobin of 15 platelets of 111 patient's persistently thrombocytopenic. Appear to be at baseline. Electrolytes are appropriate BUN and renal function is normal glucose is 103 calcium is 9.2 bilirubin is 1, AST ALT and alk-phos are normal range lipase is negative. Troponins less than 0.012. Troponin was repeated in his less than 0.012 EKG, shows sinus bradycardia first-degree AV block EKG appears similar to priors. EKG was repeated and appears similar. Chest x-ray shows no acute change. Patient's workup shows thrombocytopenia but no other significant changes. Patient has had longstanding left-sided chest pain has had some cardiac workup, states it has been a little bit more frequent but no other changes. Patient has risk factors with family history of coronary artery disease has been treated for hypertension in the past secondary to hypertensive response on stress testing but states blood pressure has been overall normal and his primary care physician stopped it. He was taking Pepcid in the past but no longer. Discussed with patient need for stress test. 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 Please call to set up an appointment. I would recommend restarting your Pepcid daily for the short term to see if this improves your symptoms. Your cardiac workup today was negative but I would discuss about with your physician about whether to have any additional testing. Please return for new or worsening symptoms, chest pain, increased shortness of breath, lightheadedness or passing out, diaphoresis or sweatiness, nausea or vomiting, new swelling of extremities new or concerning changes Prescriptions: No Action VITAMIN B COMPLEX 1 cap PO 2 X WEEK Qty: 0 cholecalciferol (vitamin D3) 400 UNIT/1 ML drops 1 - 2 drp PO Q DAY Qty: 0 aspirin 325 MG tablet 162 mg PO QDAY Qty: 0 ciprofloxacin HCl [Cipro] 500 mg tablet 500 mg PO BID Qty: 20 0RF metronidazole 500 mg tablet 250 mg PO TID Qty: 30 0RF Referrals: Minal Flower MD [Primary Care Provider] - Harsh Elmore MD [Physician] - Stand Alone Forms: Patient Portal/API
--- NOTE | 2023-10-23 07:52 | DI.RAD.S_ITS ---
PROCEDURE: XR CHEST 1V INDICATIONS: chest pain TECHNIQUE: One view of the chest was acquired. COMPARISON: [facility], , CHEST 1 VIEW, 02/17/2016, 15:15. FINDINGS: Surgical changes and devices: None. Lungs and pleura: Lungs are clear. No pleural effusions or pneumothorax. Mediastinum: Mediastinal contours appear normal. Heart size is normal. Bones and chest wall: No suspicious bony lesions. Overlying soft tissues appear unremarkable. IMPRESSION: No acute cardiopulmonary abnormality is seen. Dictated by: Cordell Mendenhall M.D. on 10/23/2023 at 8:20 Approved by: Cordell Mendenhall M.D. on 10/23/2023 at 8:21
--- NOTE | 2023-10-23 07:52 | EKG_ITS ---
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
[2023-10-23 08:02] LABS: Add Manual Diff / Slide Review NO; Basophils Absolute Auto 0 /uL (0-100); Basophils Percent Auto 0.5 % (0-2); Eosinophils Absolute Auto 0 /uL (0-450); Eosinophils Percent Auto 0.8 % (2-4); Hematocrit 43.8 % (41-53); Hemoglobin 15.2 g/dL (13.5-17.5); Lymphocytes Absolute Auto 1100 /uL (1100-4500); Lymphocytes Percent Auto 23.7 % (25-40); Mean Corpuscular HGB Conc 34.8 % (30-36); Mean Corpuscular Hemoglobin 30.7 PG (26-34); Mean Corpuscular Volume 88.3 fL (80-100); Monocytes Absolute Auto 500 /uL (0-900); Monocytes Percent Auto 9.9 % (3-14); Neutrophils Absolute Auto 3100 /uL (1500-7000); Neutrophils Percent Auto 65.1 % (50-75); Platelet Count 111 X10^3/uL (150-400); Red Blood Cell Count 4.96 X10^6/uL (4.5-5.9); Red Cell Distribution Width 13.6 % (11.6-14.8); White Blood Cell Count 4.7 X10^3/uL (4.5-11.0)
[2023-10-23 08:06] LABS: Alanine Aminotransferase 25 IU/L (<50); Albumin 4.2 g/dL (3.5-5.0); Albumin Globulin Ratio 1.5 (1.0-2.8); Alkaline Phosphatase 90 U/L (38-126); Aspartate Aminotransferase 42 IU/L (17-59); BUN Creatinine Ratio 21.9 (6-22); Blood Urea Nitrogen 16 mg/dL (9-20); Calcium 9.2 mg/dL (8.4-10.2); Carbon Dioxide 25 mmol/L (22-32); Chloride 105 mmol/L (98-107); Creatine Kinase 122 U/L (55-170); Estimated Glomerular Filt Rate > 60 mL/min (>60); Globulin 2.8 g/dL (1.7-4.1); Glucose 103 mg/dL (80-110); HEMOLYSIS 17 (0-50); Lipase 112 U/L (23-300); Potassium 3.8 mmol/L (3.4-5.1); Sodium 137 mmol/L (137-145)
[2023-10-23 08:15] LABS: NT-proBNP (BNP-Adult 18+) 84 pg/mL (<125)
[2023-10-23 08:18] LABS: Troponin I < 0.012 ng/mL (0.01-0.034)
--- NOTE | 2023-10-23 09:44 | EKG_ITS ---
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
[2023-10-23 10:20] LABS: Troponin I < 0.012 ng/mL (0.01-0.034)
== END 2023-10-23 10:46 | disposition home or self-care (01) ==
PROVIDERS: Emergency Provider Emergency Medicine; PCP Family Medicine
DX: R07.9 Chest pain, unspecified (principal); R00.1 Bradycardia, unspecified; I44.0 Atrioventricular block, first degree
CPT/HCPCS: 36415; 71045; 80053; 82550; 83690; 83880; 84484; 85025; 93005; 93010; 99283; 99284

== ENCOUNTER → 2023-11-15 08:20 | Outpatient (CLI) | payer MEDICARE, OTHER, SELFPAY ==
--- NOTE | 2023-11-15 08:22 | DI.US.S_ITS ---
PROCEDURE: US CAROTID DOPPLER BI INDICATIONS: HYPERLIPIDEMIA/DIZZINESS TECHNIQUE: Color and pulse Doppler interrogation was performed of both carotid systems, with image documentation and velocity measurements. COMPARISON: None. FINDINGS: Stenosis calculations are based on SRU (Society of Radiologists in Ultrasound) criteria. The flow velocities and the arterial waveforms are normal within both carotid arterial systems. Mild atherosclerotic plaque is seen on both sides, with intimal thickening. The estimated degree of internal carotid artery stenosis is less than 50%. Antegrade flow is confirmed within both vertebral arteries. IMPRESSION: No hemodynamically significant stenosis is seen. Dictated by: Dnaial Hanson M.D. on 11/15/2023 at 10:31 Approved by: Danial Hanson M.D. on 11/15/2023 at 10:32
== END ==
PROVIDERS: PCP Family Medicine; Referring Provider Family Medicine; Visit Provider Family Medicine
DX: I25.10 Atherosclerotic heart disease of native coronary artery without angina pectoris (principal); E78.2 Mixed hyperlipidemia; R42 Dizziness and giddiness
CPT/HCPCS: 93880